=== PATIENT | female | born 1985 | race Caucasian/White ===

== ENCOUNTER 2017-03-17 17:01 | Emergency (ER) | payer OTHER ==
[2017-03-17 17:21] VITALS: BP 141/90; PULSE 74; RESP 16; TEMP 98; O2SAT 100
[2017-03-17] MEDS ORDERED: LIDOCAINE HCL 2% (VISCOUS) 20 ML SOL MT ONE (17:28)
[2017-03-17] MEDS ORDERED: LIDOCAINE HCL 2% (VISCOUS) 20 ML SOL ONE (17:30)
[2017-03-17] MEDS ORDERED: KETOROLAC TROMETHAMINE 30 MG/ML SOL IM ONE (17:40)
[2017-03-17] MEDS ORDERED: ACETAMI/HYDROCO 325/10 TAB PO ONE (17:40)
[2017-03-17] MEDS ORDERED: APAP/HYDROCODONE 325/5 TAB ONE (17:45)
[2017-03-17] MEDS: APAP/HYDROCODONE 325/5 TAB PO ONE ×2 (17:45)
[2017-03-17] MEDS ORDERED: KETOROLAC TROMETHAMINE 30 MG/ML SOL ONE (17:46)
== END 2017-03-17 17:52 | disposition home or self-care (01) | DRG 159 ==
LOC: ED 17:01
DX: K04.7 Periapical abscess without sinus (principal)
CPT/HCPCS: 99282; J1885